=== PATIENT | female | born 2000 | race Caucasian/White ===

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

== ENCOUNTER 2022-11-07 13:20 | Emergency (ER) | payer OTHER ==
[~2022-11-07] VITALS: Ht 165.1 cm; Wt 77.1 kg
[2022-11-07] MEDS ORDERED: APAP/CODEINE 120/12MG 5ML PO STA (13:33)
[2022-11-07] MEDS ORDERED: DEXAMETHASONE SOD PHOSPHATE 4 MG/ML 1ML VIAL IM ONE (14:00)
[2022-11-07] MEDS ORDERED: AMOX500C2 PO (15:04)
[2022-11-07] MEDS ORDERED: FLUT16H NASAL (15:04)
[2022-11-07 15:18] VITALS: BP 117/67
== END 2022-11-07 15:20 | disposition home or self-care (01) ==
LOC: EDH 13:20
DX: J02.9 Acute pharyngitis, unspecified (principal); Z91.048 Other nonmedicinal substance allergy status; Z20.822 Contact with and (suspected) exposure to COVID-19
CPT/HCPCS: 99283; 87635; 87880; 87804 ×2; 96372; J1100; C9803